=== PATIENT | male | born 1975 | race Caucasian/White ===

== ENCOUNTER → 2021-06-11 | Outpatient (CLI) | payer BC ==
--- NOTE | 2021-06-11 11:51 | RAD ---
MR#: [id number] Date of Study: 06/11/2021 Ordering Physician: GOPAL ASH, Referring Physician: GOPAL ASH, Tech: Krish Herr MBA, RDMS, RVT, RDCS, RTR APPROVED REPORT Patient Location : OUT-PATIENT Indications Lower Extremity Edema : Bilateral Greater Saphenous Veins (GSV) Significant venous relux noted in the RIGHT GSV at the following levels : Superficial Femoral Junctio n, Proximal Thigh, Mid Thigh, Distal Thigh, Proximal Calf, Mid Calf, Distal Calf Significant venous relux noted in the LEFT GSV at the following levels : Superficial Femoral Junction Lesser Saphenous Veins (LSV) Significant venous reflux is noted in the Bilateral LSV. Perforators Thigh Perforators Calf Perforators Left: cm up from medial heel 3cm back from the anterior border of tibia 3 diameter 2.3mm. Findings Limited grayscale images of the bilateral saphenofemoral junctions are grossly unremarkable. The right great saphenous vein measures 10 mm. It has a reflux time of 3.2 seconds. There are multi ple venous varicosities noted along the right great saphenous vein. The left great saphenous vein measures approximately 9 mm and has a maximum reflux time of 3.3 second s. Multiple perforators and varicose veins are noted again on the left leg. The right lesser saphenous vein measures approximately 2 mm and has a maximum reflux time of 1.8 seco nds. The left lesser saphenous vein measures approximately 2.8 mm and has a maximum reflux time of 3.2 sec onds. Critical Notification Critical Value: No <Conclusion> 1. Positive for reflux in the bilateral greater and lesser saphenous veins Signed by : Rick Elise, Electronically Approved : 06/11/2021 11:50:57
--- NOTE | 2021-06-12 11:35 | CARD ---
MR#: [id number] Date of Study: 06/11/2021 Ordering Physician: GOPAL ASH, Referring Physician: GOPAL ASH Tech: Ashwini Powell IGNACIO APPROVED REPORT EXAM: Two-dimensional and M-mode echocardiogram with Doppler and color Doppler. Other Information Quality : AverageHR: 74bpm Rhythm : NSRNSRAtrial FibrillationAtrial FlutterAPC'sPVC's INDICATION Hypertension/HCVD 2D DIMENSIONS RVDd3.5 (2.9-3.5cm)Left Atrium(2D)3.7 (1.6-4.0cm) IVSd1.1 (0.7-1.1cm)Aortic Root(2D)3.6 (2.0-3.7cm) LVDd4.7 (3.9-5.9cm)LVOT Diameter2.8 (1.8-2.4cm) PWd1.1 (0.7-1.1cm)LVDs3.7 (2.5-4.0cm) FS (%) 20.5 %SV42.1 ml Aortic Valve AoV Peak Gustabo.117.4cm/sAoV VTI23.2cm AO Peak GR.5.5mmHgLVOT Peak Gustabo.101.2cm/s AO Mean GR.3mmHgAVA (VMAX)5.28cm2 Mitral Valve MV E Rownzkof13.9cm/sMV DECEL SEBQ658sa MV A Hgiidbmu47.3cm/sE/A Ratio1.1 Tricuspid Valve TR P. Bxqqcilb283ee/sTR Peak Gr.23mmHg LEFT VENTRICLE The left ventricle is normal size. There is normal left ventricular wall thickness. The left ventricu lar systolic function is normal. The ejection fraction is 50 to 55%. There is normal LV segmental wal l motion. The left ventricular diastolic function and filling is normal for age. RIGHT VENTRICLE The right ventricle is normal size. There is normal right ventricular wall thickness. The right ventr icular systolic function is normal. ATRIA The left atrium size is normal. The right atrium size is normal. The interatrial septum is intact wit h no evidence for an atrial septal defect or patent foramen ovale as noted on 2-D or Doppler imaging. AORTIC VALVE The aortic valve is normal in structure and function. Doppler and Color Flow revealed no significant aortic regurgitation. There is no significant aortic valvular stenosis. MITRAL VALVE The mitral valve is normal in structure and function. There is no evidence of mitral valve prolapse. There is no mitral valve stenosis. Doppler and Color Flow revealed no mitral valve regurgitation note d. TRICUSPID VALVE The tricuspid valve is normal in structure and function. Doppler and Color Flow revealed mild tricusp id regurgitation. Estimated PAP 28 mmHG. There is no tricuspid valve stenosis. PULMONIC VALVE The pulmonary valve is normal in structure and function. Doppler and Color Flow revealed no pulmonic valvular regurgitation. GREAT VESSELS The aortic root is upper normal in size. The ascending aorta is normal in size. The IVC is normal in size and collapses >50% with inspiration. PERICARDIAL EFFUSION There is no evidence of significant pericardial effusion. Critical Notification Critical Value: No <Conclusion> The left ventricle is normal size. The left ventricular systolic function is normal. The ejection fraction is 50 to 55%. Doppler and Color Flow revealed no significant aortic regurgitation. There is no significant aortic valvular stenosis. Doppler and Color Flow revealed no mitral valve regurgitation noted. Doppler and Color Flow revealed mild tricuspid regurgitation. Estimated PAP 28 mmHG. Signed by : Jhonathan Bray MD Electronically Approved : 06/12/2021 11:34:59
== END ==
LOC: US 08:29
PROVIDERS: ATTEND Internal Medicine Cardiovascular Disease
DX: I36.1 Nonrheumatic tricuspid (valve) insufficiency (principal); I83.93 Asymptomatic varicose veins of bilateral lower extremities; I87.2 Venous insufficiency (chronic) (peripheral); Q21.1 Atrial septal defect
CPT/HCPCS: 93306; 93970

== ENCOUNTER → 2021-08-07 | Outpatient (CLI) | payer BC ==
--- NOTE | 2021-08-07 16:23 | RAD ---
INDICATION: Reason: Post OP Venaseal Ablation Bilateral GSV's; check for DVT / Spl. Instructions: / History: COMPARISON: August 06, 2021 TECHNIQUE: Grayscale, color and doppler ultrasound images were obtained of the bilateral lower extrem ity venous vasculature. RIGHT: No thrombus identified in the common femoral vein, femoral vein, popliteal vein or visualized calf ve ins. LEFT: No thrombus identified in the common femoral vein, femoral vein, popliteal vein or visualized calf ve ins. Occlusion of bilateral greater saphenous vein which could be seen with posttreatment changes with thr ombus extending into branch vessel off the greater saphenous vein which could be associated with the procedure. IMPRESSION: * No thrombus identified in deep venous system of bilateral lower extremities. * Bilateral occlusion of greater saphenous vein which can be seen with posttreatment changes. Electronically signed by: Anurag Aggarwal MD (08/07/2021 4:21 PM) [id number]
== END ==
LOC: US 14:57
PROVIDERS: ATTEND Internal Medicine Cardiovascular Disease
DX: I82.813 Embolism and thrombosis of superficial veins of lower extremities, bilateral (principal); I87.323 Chronic venous hypertension (idiopathic) with inflammation of bilateral lower extremity
CPT/HCPCS: 93970